=== PATIENT | female | born 2000 | race Caucasian/White ===

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

== ENCOUNTER 2022-07-03 00:41 | Emergency (ER) | payer OTHER, SELFPAY ==
--- NOTE | ~2022-07-03 | XR_ITS ---
XR hip RT min 3V w AP pelvis 07/03/2022 02:21 Indication: Right hip pain Procedure: 3 views right hip including AP pelvis Comparison: No prior studies for comparison. Findings: Pelvic rings are intact. There is an IUD in the pelvis. Sacral foramen are symmetric. No si gnificant soft tissue abnormality. No foreign bodies. No acute fracture or traumatic malalignment. Sa cral foramen are symmetric. Impression: 1: No acute bone or joint abnormality. Reviewed, dictated and finalized at location A. DBIRTH AND INFANT CARE TEACHER Impression: 1: No acute bone or joint abnormality.
[2022-07-03 00:52] VITALS: BP 132/87; PULSE 91; RESP 16; TEMP 36.4; O2SAT 99
--- NOTE | 2022-07-03 02:59 | ED.LOWEXIN ---
HPI - Extremity Injury (Lower) General Chief Complaint: Extremity Injury, Lower <Mayte Knight PA-C - Last Filed: 07/03/22 04:58> Stated Complaint: right hip pain <NILA Hemphill Last Filed: 07/03/22 04:58> Time Seen by Provider: 07/03/22 01:42 <Mayte Knight PA-C - Last Filed: 07/03/22 04:58> Source: patient <NILA Hemphill Last Filed: 07/03/22 04:58> Mode of arrival: wheelchair <NILA Hemphill Last Filed: 07/03/22 04:58> Limitations: no limitations <NILA Hemphill Last Filed: 07/03/22 04:58> History of Present Illness HPI Narrative: This is a 21-year-old female that presents to the emergency department for right lateral hip pain. Ongoing over the last week. Reports tonight the pain made it hard for her to ambulate which prompted her to be seen. She saw her orthopedic doctor for her pain who prescribed a muscle relaxer and a steroid. She is scheduled for a steroid injection in her back this week. No recent injuries or trauma. Denies decreased range of motion, numbness, weakness, or saddle anesthesia. <Mayte Knight PA-C - Last Filed: 07/03/22 04:58> Related Data Allergies/Adverse Reactions: Allergies Allergy/AdvReac Type Severity Reaction Status Date / Time No Known Allergies Allergy Verified 07/03/22 00:42 <NILA Hemphill Last Filed: 07/03/22 04:58> Review of Systems Review of Systems: CONSTITUTIONAL: Denies fever SKIN: Denies rash MUSCULOSKELETAL: Reports back pain, joint pain, and myalgia. NEUROLOGIC: Denies numbness, or weakness. <NILA Hemphill Last Filed: 07/03/22 04:58> All systems reviewed & are unremarkable except as noted in HPI and below <NILA Hemphill Last Filed: 07/03/22 04:58> [facility] Past Medical History Medical History: Medical History (Updated 07/04/22 @ 00:00 by Ti Davila) No active medical problems <Mayte Knight PA-C - Last Filed: 07/03/22 04:58> Social History Social History: Social History (Updated 07/03/22 @ 03:01 by Mayte Knight PA-C) Substance use: never <Mayte Knight PA-C - Last Filed: 07/03/22 04:58> Exam Narrative: GENERAL: Well-appearing, well-nourished, and in no acute distress. HEAD: Normocephalic, atraumatic. EYES: EOMI. CHEST: Clear to auscultation. No respiratory distress. No wheezes rales or rhonchi HEART: Regular rate and rhythm. No murmur heard. Normal peripheral pulses. ABDOMEN: Soft, nontender, nondistended, normal active bowel sounds. BACK: No midline spinal tenderness EXTREMITIES: Normal range of motion. No edema. Strength equal in bilateral lower extremities (5/5). Normal DP pulses SKIN: Warm, dry, no rash. NEURO: No focal deficits. Alert and oriented x3. PSYCH: Normal mood and affect <Mayte Knight PA-C - Last Filed: 07/03/22 04:58> Course Course Emergency Course: Patient and family updated on work-up and agree with plan of care <Mayte Knight PA-C - Last Filed: 07/03/22 04:58> THEATER MANAGER/PA Physician Supervision For this encounter, I have reviewed the mid-level provider documentation, treatment plan and medical decision making. I have had [id number] time with the patient. physical exam revealed the obese 21-year-old female presenting with acute on chronic hip pain. She was neurovascularly intact with no symptoms spinal cord compression. She is afebrile, with no evidence of a septic joint. Pain is treated symptomatically and she will be discharged with orthopedic follow-up.. All questions answered. Patient in agreement w/ disposition. <James Balderas MD - Last Filed: 07/11/22 18:24> Vital Signs Vital signs: Vital Signs Temperature 97.5 F L 07/03/22 00:52 Pulse Rate 91 07/03/22 00:52 Respiratory Rate 16 07/03/22 00:52 Blood Pressure 132/87 07/03/22 00:52 Pulse Oximetry 99 07/03/22 00:52 Oxygen Delivery Room Air 07/03/22 00:52 Temperature 96.4 F L
[2022-07-03] MEDS: ACETAMINOPHEN 500 MG TABLET 1000 MG PO (03:04)
[2022-07-03] MEDS: oxyCODONE HCL (*CRX) 5 MG TAB IR PO (03:05)
[2022-07-03 04:16] VITALS: BP 134/72; PULSE 78; RESP 18; TEMP 35.8; O2SAT 99
== END 2022-07-03 05:24 | disposition home or self-care (01) ==
PROVIDERS: Emergency Provider Emergency Medicine; PCP Pediatrics
DX: M25.551 Pain in right hip (principal); M54.41 Lumbago with sciatica, right side
CPT/HCPCS: 73502; 81025; 99283; A9270

== ENCOUNTER 2023-04-06 08:26 | Emergency (ER) | payer OTHER, SELFPAY ==
--- NOTE | ~2023-04-06 | CT_ITS ---
EXAMINATION: CT abdomen pelvis wo con DATE: 04/06/2023 11:22 INDICATION: Left flank pain TECHNIQUE: Computed tomography (CT) of the abdomen and pelvis was performed without intravenous contr ast. Automated exposure control and iterative reconstruction technique were employed. Exam dose: 166 1.73 mGy-cm total exam DLP. COMPARISON: None. FINDINGS: Minimal atelectasis and/or scarring at the lung bases. Normal heart size. No pericardial or pleural effusion. There is diffuse hepatic steatosis except for minimal pericholecystic sparing. The gallbladder is present. No pancreatic mass lesion or calcification or bile duct or pancreatic venkata t dilatation. There is splenomegaly. No adrenal mass lesion. No renal mass lesion or urinary tract calculus or hydroureteronephrosis is detected. The urinary tarsha dder appears normal. IUD within uterus. The uterus and adnexal areas are otherwise unremarkable. Up to 7.5 x 12 mm mesenteric lymph nodes There are shotty nonenlarged periaortic and aortocaval lymph nodes. Shotty bilateral inguinal lymph n odes. Normal caliber of the abdominal aorta. Moderately severe degenerative disc disease at L4-5. IMPRESSION: Multiple mesenteric lymph nodes and shotty periaortic and aortocaval nodes. Lymphoma (p articularly considering the splenomegaly) or metastasis are not excluded. Hepatic steatosis Splenomegaly Reviewed, dictated and finalized at Location [facility]. Reviewed, dictated and finalized at location L. IMPRESSION: Multiple mesenteric lymph nodes and shotty periaortic and aortocav al nodes. Lymphoma (particularly considering the splenomegaly) or metastasis a re not excluded. Hepatic steatosis Splenomegaly
[2023-04-06 08:31] VITALS: BP 119/81; PULSE 113; RESP 16; TEMP 36.8; O2SAT 95
[2023-04-06 08:56] LABS: Hematocrit 42.8 % (37.0-47.0); Mean Corpuscular HGB Conc 32.7 g/dl (32-36); Mean Corpuscular Hemoglobin 28.3 pg (26-34); Mean Corpuscular Volume 86.6 fl (80-100); Mean Platelet Volume 10.5 fl (7.4-10.4); Platelet Count Result 143 k/mm3 (150-375); Red Blood Count 4.94 M/mm3 (4.2-5.4); White Blood Count 10.3 K/mm3 (4.5-10.0)
[2023-04-06 09:00] VITALS: BP 130/80; PULSE 110; RESP 16; O2SAT 100
[2023-04-06 09:04] LABS: Alanine Aminotransferase 130 U/L (6-35); Albumin Level 4.1 g/dL (3.5-5.1); Alkaline Phosphatase 105 U/L (38-126); Anion Gap 5 mmol/L (8-16); Aspartate Amino Transferase 97 U/L (14-36); Bilirubin,Total 0.9 mg/dL (0.2-1.3); Blood Urea Nitrogen 10 mg/dL (7-17); Calcium 9.1 mg/dL (8.4-10.2); Carbon Dioxide 27 mmol/L (22-30); Chloride 107 mmol/L (98-107); Estimated CRCL calculation 181 ml/min; Estimated Glomerular Filt Rate > 60; Glucose 103 mg/dL (65-110); Potassium 3.8 mmol/L (3.4-5.0); Sodium 139 mmol/L (137-145)
[2023-04-06 09:18] LABS: Band Neutrophils Percent 11 % (0-6); Eosinophils Percent Manual 1 % (0-4); Lymphocytes Absolute Manual 6.69 K/mm3 (1.1-4.5); Metamyelocytes Percent 2 %; Monocytes Absolute Manual 0.41 K/mm3 (0.1-0.90); Monocytes Percent Manual 4 % (3-9); Neutrophils Absolute Manual 2.88 K/mm3 (1.7-7.2); Neutrophils Percent Manual 17 % (46-73); Platelet Estimate Adequate (Adequate); Total Cells Counted 100
[2023-04-06 09:19] LABS: Atypical Lymphocytes Present; Hypochromasia 1+ (NORMAL); Schistocytes None Seen (NORMAL)
[2023-04-06] MEDS: SODIUM CHLORIDE 0.9% IV 1,000 ML 999 ML IV CONT (09:43)
[2023-04-06 10:00] VITALS: BP 132/73; PULSE 108; RESP 16; O2SAT 97
[2023-04-06 10:52] LABS: Pregnancy On Board Control Positive; Urine Pregnancy Test Negative
[2023-04-06 11:00] VITALS: BP 119/74; PULSE 100; RESP 16; O2SAT 98
[2023-04-06 11:35] LABS: Add Urine Microscopic? YES; Appearance Urine Turbid (Clear); Bacteria Urine 4+ /hpf; Bilirubin Urine Negative (Negative); Blood Urine Negative (Negative); Color Urine Yellow (Yellow); Glucose Urine UA Negative (Negative); Ketones Urine Negative (Negative); Leukocyte Esterase Ur 3+ LEU/UL (Negative); Need Manual Microscopic Reviewed; Nitrate Urine Negative (Negative); Protein Urine Trace mg/dL (Negative); Specific Grav Ur 1.019 (1.001-1.035); Squamous Epithelial Cell Urine Many /hpf (Few); WBC Urine 51-100 /hpf
--- NOTE | 2023-04-06 12:17 | ED.GENADULT ---
HPI - General Adult General Chief complaint: Urogenital-Female Stated complaint: kidney stone Time Seen by Provider: 04/06/23 08:42 Source: patient Mode of arrival: ambulatory Limitations: no limitations History of Present Illness HPI narrative: 22-year-old otherwise healthy here with complaints of unable to urinate on and off for past few days. She states that she called her primary doctor who thinks it could be a kidney stone. No previous history of kidney stones. She denies any blood in the urine. No history of fever or chills. Onset (ago): day(s) (2) Severity: moderate Exacerbating factors: none Associated symptoms: denies other symptoms Related Data Allergies Allergy/AdvReac Type Severity Reaction Status Date / Time No Known Allergies Allergy Verified 07/03/22 00:42 Review of Systems Review of Systems: All systems reviewed & are unremarkable except as noted in HPI and below Constitutional: Constitutional: Reports no additional constitutional complaints Eyes: Eyes: Reports no additional eye complaints ENT: Reports system reviewed and no additional complaints, except as documented Cardiovascular: Cardiovascular: Reports no additional cardiovascular complaints Respiratory: Respiratory: Reports no additional respiratory complaints Gastrointestinal: Gastrointestinal: Reports as per HPI Musculoskeletal: Musculoskeletal: Reports no additional musculoskeletal complaints Integumentary/Breasts: Skin/Breast: Reports system reviewed and no additional complaints, except as docu Neurologic: Reports system reviewed and no additional complaints, except as documented PMFSH Past Medical History Medical History No active medical problems Social History Social History Substance use: never Exam Narrative: GENERAL: Well-appearing, well-nourished, and in no acute distress. HEAD: Normocephalic, atraumatic. EYES: PERRLA and EOMI. ENT: Nares clear, no rhinorrhea or epistaxis. Mucous membranes moist. NECK: Supple. CHEST: Clear to auscultation. No respiratory distress. HEART: Regular rate and rhythm. No murmur heard. Normal peripheral pulses. ABDOMEN: Soft, nontender, nondistended, normal active bowel sounds. EXTREMITIES: Normal range of motion. No edema. SKIN: Warm, dry, no rash. NEURO: No focal deficits. Alert and oriented x3. PSYCH: Normal mood and affect. Course Course Emergency Course: Patient still remains pain-free here in the ER. Informed her about the lab work, CT findings. Did mention about the enlarged lymph nodes recommended her to follow-up with her primary doctor for further work-up. Vital Signs Vital signs: Vital Signs Temperature 36.8 C 04/06/23 08:31 Pulse Rate 113 H 04/06/23 08:31 Respiratory Rate 16 04/06/23 08:31 Blood Pressure 119/81 04/06/23 08:31 Pulse Oximetry 95 04/06/23 08:31 Oxygen Delivery Room Air 04/06/23 08:31 Temperature 36.8 C 04/06/23 08:31 Pulse Rate 113 H 04/06/23 08:31 Respiratory Rate 16 04/06/23 08:31 Blood Pressure 119/81 04/06/23 08:31 Pulse Oximetry 95 04/06/23 08:31 Oxygen Delivery Room Air 04/06/23 08:31 Medical Decision Making MDM Narrative Medical decision making narrative: 22-year-old otherwise healthy having difficulty urinating we will do a bladder scan to check for urinary retention. Also do lab work and CT of the abdomen and pelvis to rule out kidney stone. Vital Signs Vital Signs: Vital Signs Temperature 36.8 C 04/06/23 08:31 Pulse Rate 113 H 04/06/23 08:31 Respiratory Rate 16 04/06/23 08:31 Blood Pressure 119/81 04/06/23 08:31 Pulse Oximetry 95 04/06/23 08:31 Oxygen Delivery Room Air 04/06/23 08:31 Temperature 36.8 C 04/06/23 08:31 Pulse Rate 113 H 04/06/23 08:31 Respiratory Rate 16 04/06/23 08:31 Blood Pressure 119/81 04/06/23 08:31 Pulse Oximetry 95
[2023-04-06 12:35] VITALS: BP 147/79; PULSE 72; RESP 16; O2SAT 97
== END 2023-04-06 12:35 | disposition home or self-care (01) ==
PROVIDERS: Emergency Provider Family Medicine
DX: N39.0 Urinary tract infection, site not specified (principal); R59.1 Generalized enlarged lymph nodes; R16.1 Splenomegaly, not elsewhere classified; K76.0 Fatty (change of) liver, not elsewhere classified
CPT/HCPCS: 36415; 74176; 80053; 81001; 81025; 85025; 87086; 87088; 96361; 96365; 99284; J0696; J7030

== ENCOUNTER 2023-04-10 11:13 | Outpatient (CLI) | payer OTHER, SELFPAY ==
[2023-04-10 11:30] LABS: Hematocrit 42.3 % (37.0-47.0); Hemoglobin 13.8 g/dL (12.0-15.0); Mean Corpuscular HGB Conc 32.6 g/dl (32-36); Mean Corpuscular Hemoglobin 28.5 pg (26-34); Mean Corpuscular Volume 87.4 fl (80-100); Mean Platelet Volume 9.9 fl (7.4-10.4); Platelet Count Result 152 k/mm3 (150-375); Red Blood Count 4.84 M/mm3 (4.2-5.4); Red Cell Distribution Width 14.5 % (11.5-14.5); White Blood Count 15.2 K/mm3 (4.5-10.0)
[2023-04-10 11:38] LABS: Atypical Lymphocytes Present; Band Neutrophils Percent 3 % (0-6); Monocytes Absolute Manual 0.45 K/mm3 (0.1-0.90); Monocytes Percent Manual 3 % (3-9); Neutrophils Absolute Manual 3.04 K/mm3 (1.7-7.2); Neutrophils Percent Manual 17 % (46-73); Platelet Estimate Adequate (Adequate); Schistocytes None Seen (NORMAL); Total Cells Counted 100
[2023-04-10 11:39] LABS: Smudge Cells PRESENT
[2023-04-10 17:05] LABS: Alanine Aminotransferase 212 U/L (6-35); Albumin Level 4.2 g/dL (3.5-5.1); Alkaline Phosphatase 153 U/L (38-126); Anion Gap 7 mmol/L (8-16); Aspartate Amino Transferase 110 U/L (14-36); Bilirubin,Total 0.7 mg/dL (0.2-1.3); Blood Urea Nitrogen 12 mg/dL (7-17); Calcium 9.8 mg/dL (8.4-10.2); Carbon Dioxide 29 mmol/L (22-30); Chloride 106 mmol/L (98-107); Estimated Glomerular Filt Rate > 60; Glucose 93 mg/dL (65-110); Lactate Dehydrogenase 554 U/L (120-246); Potassium 4.1 mmol/L (3.4-5.0); Sodium 142 mmol/L (137-145)
[2023-04-13 11:25] LABS: EBV Nuclear Ab Antibody <18.00 U/mL (<18.00); EBV Nuclear Ab Interpretation Current (Acute); EBV Virus Capsid Ag IgM Ab >160.00 U/mL (<36.00)
== END 2023-04-10 11:14 | disposition home or self-care (01) ==
LOC: ANHLAB 11:16
PROVIDERS: Visit Provider Internal Medicine Hematology & Oncology
DX: R59.1 Generalized enlarged lymph nodes (principal)
CPT/HCPCS: 36415; 80053; 83615; 85025; 86664; 86665

== ENCOUNTER 2023-04-21 09:24 | Outpatient (CLI) | payer OTHER, SELFPAY | END 2023-04-21 09:25 | disposition home or self-care (01) | PROVIDERS: PCP Nurse Practitioner Family; Visit Provider Internal Medicine Hematology & Oncology | DX: C85.93 Non-Hodgkin lymphoma, unspecified, intra-abdominal lymph nodes (principal) | CPT/HCPCS: 88184 ==